=== PATIENT | male | born 2000 | race African-American/Black ===

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

== ENCOUNTER 2021-06-09 09:50 | Emergency (ER) | payer OTHER ==
[~2021-06-09] VITALS: Ht 177.8 cm; Wt 129.3 kg
[2021-06-09 09:51] VITALS: BP 155/96
[2021-06-09] MEDS ORDERED: IVER3TAB PO (12:07)
[2021-06-09] MEDS ORDERED: AZIT500T4 PO (12:07)
[2021-06-09 12:29] VITALS: BP 124/64
== END 2021-06-09 12:29 | disposition home or self-care (01) ==
LOC: EDH 09:50
DX: U07.1 COVID-19 (principal); E66.9 Obesity, unspecified; Z68.41 Body mass index [BMI] 40.0-44.9, adult
CPT/HCPCS: 87635; 99283; C9803